=== PATIENT | female | born 1970 | race Caucasian/White ===

== ENCOUNTER → 2018-05-23 | Outpatient (CLI) | payer OTHER | LOC: MC.RAD 08:00 | DX: Z12.31 Encounter for screening mammogram for malignant neoplasm of breast (principal) ==

== ENCOUNTER → 2020-03-01 | Outpatient (CLI) | payer MEDICAID | LOC: COL.RAD 02-11 14:00 | DX: G44.52 New daily persistent headache (NDPH) (principal) ==

== ENCOUNTER → 2021-08-14 | Outpatient (CLI) | payer MEDICAID | LOC: MC.RAD 07-19 11:30 | DX: Z12.31 Encounter for screening mammogram for malignant neoplasm of breast (principal); N63.10 Unspecified lump in the right breast, unspecified quadrant; N63.20 Unspecified lump in the left breast, unspecified quadrant ==